=== PATIENT | female | born 1990 | race Hispanic/Latino ===

== ENCOUNTER 2016-10-01 15:04 | Emergency (ER) | payer MEDICAID, OTHER ==
[~2016-10-01] VITALS: Ht 167.6 cm; Wt 91.6 kg
[2016-10-01 15:12] VITALS: BP 110/68; PULSE 120; RESP 16; O2SAT 97
--- NOTE | 2016-10-01 15:23 | ED.REPORT ---
HPI-Rash / Abscess Date of Service Oct 01, 2016 ED Provider: Kevin Galvan MD Pt is as 26 y/o female with a hx of type II diabetes mellitus who reports to the ER complaining of a large abscess on her left buttocks which has been increasing in size for the past 3 days. Pt had a large abscess on her left thigh a month ago, which was treated at Urgent Care where they drained the wound and had strep positive culture. Pt frequently gets smaller sized abscesses in this location. Pt also c/o associated fever, chills, lack of sleep , urinary frequency, increased thirst, and fatigue. Pt reports that it is "uncomfortable to sit down," due to abscess. Pt knows that she is diabetic but has been off of metformin for a year. Pt's brother dropped her off at the ER. Urgent Care sent her to ER for concern with blood sugar (433). Nursing Notes Stated Complaint: ABSCESS Chief Complaint: General Complaint Nursing Notes Reviewed: Yes (Entrenarme, Anago not reconciled) Allergies: Coded Allergies: No Known Allergies (Unverified Allergy, 03/05/10) Scheduled Clindamycin (Clindamycin) 300 Mg Capsule 300 MG PO QID Lactobacillus Combination No.4 (Probiotic) 1 Each Capsule 1 EACH PO DAILY Metformin (Glucophage) 850 Mg Tablet 850 MG PO BID Scheduled PRN Hydrocodone-Acetaminophen 5-325 mg (Hydrocodone-Acetaminophen 5-325 mg) 1 Each Tablet 1-2 TABLET PO Q4H PRN PRN For Pain General Time Seen by MD: 15:21 Chief Complaint Abscess (left buttock) Hx Obtained From: Patient Arrived By: Walk-in Onset Occurred: 3 days ago Symptom Duration: Since onset Severity: Current: Mild Severity: Maximum: Mild Recent Healthcare: Recent doctor visit Similar Sx Previous: Yes Past Medical History Past Medical History Notes: 09/03/16 seen at urgent care for abscess beta hemolytic streptococcus, group B heavy growth penicillin and ampicillin are drugs of choice for treatment Past Medical History Diabetes mellitus type 2 depression Past Surgical History right and left knee surgery for meniscus tear Family History noncontributory Smoking History Never Smoker Social History Other Social History: Good social support, Local resident Ambulatory Status Independent Review of Systems Review of Systems Note: abscess to left buttocks, increased thirst Constitutional: Reports: Chills, Fatigue, Fever, Malaise Complete sys rev & neg: except as marked. Female: Reports: Urinary frequency, Urination increased Physical Exam Initial Vital Signs Vital Signs (First) Date Time Temp Pulse Resp B/P Pulse Ox O2 Delivery O2 Flow Rate FiO2 10/01/16 15:12 37.2 120 16 110/68 97 Room Air Initial VS: Reviewed, Vital signs abnormal Head / Eyes: Atraumatic, Normocephalic, PERRL Extremities: Vascular intact, Neuro intact Neurologic: Alert, Oriented, Nonfocal Psychiatric: Mood/affect normal, Behavior normal, Normal thought content General/Constitutional: Awake, Alert, Not toxic appearing appears dehydrated Skin: Warm, Dry Abscess #1 Location/Condition: Positive: Buttock L... (induration and tenderness on right buttock for current abscess) Abscess #2 Location/Condition: Positive: Location (healed wound to left thigh from recent incision and drainage ) Head / Eyes: Normocephalic, PERRL ENT: Airway patent Mouth: Positive: Mucous membranes dry dry chapped lips Respiratory / Chest: Breath sounds NL, Breath sounds = bilat, No respiratory distress, No rales, No rhonchi, No wheezing Cardiovascular: Regular rhythm, No murmurs Heart Rate / Rhythm: Positive: Tachycardia Abdomen: Atraumatic, Soft, Non-tender Interpretation & Diagnostics Interpretation & Diagnostics: Culture from August from left thigh grew strep Lab Results Interpretation Result Diagram: 10/01/16 1540 10/01/16 1540 Test 10/01/16 15:40 White Blood Count 5.7th/mm3 (3.8-10.1) Red Blood Count 4.89mil/mm3 (3.90-5.20) Hemoglobin 12.7g/dL (12.0-15.6) Hematocrit 39.1% (35.0-46.0) Mean Corpuscular Volume 80.0fL (81-100) Mean Corpuscular Hemoglobin 26.0pg (27.0-35.0) Mean Corpuscular Hemoglobin Concent 32.5% (32.0-37.0) Red Cell Distribution Width 14.3% (12.3-15.4) Platelet Count 86bil/L (150-400) Neutrophils (%) (Auto) 84.7% (40-74) Lymphocytes (%) (Auto) 5.5% (14-46) Monocytes (%) (Auto) 7.4% (4-12) Eosinophils (%) (Auto) 1.1% (0-5) Basophils (%) (Auto) 0.2% (0-3) Sodium Level 130mEq/L (134-144) Potassium Level 4.0mEq/L (3.5-5.2) Chloride Level 94mEq/L (97-108) Carbon Dioxide Level 21mmol/L (18-29) Blood Urea Nitrogen 9mg/dL (6-20) Creatinine 0.51mg/dL (0.57-1.00) Estimat Glomerular Filtration Rate 212mL/min (>59) Glucose Level 437mg/dL (60-99) Lactic Acid Level 2.8mmol/L (0.4-2.0) Calcium Level 8.7mg/dL (8.5-10.1) Total Bilirubin 2.4mg/dL (0.0-1.2) Aspartate Amino Transf (AST/SGOT) 111U/L (0-50) Alanine Aminotransferase (ALT/SGPT) 77U/L (0-32) Alkaline Phosphatase 81U/L (25-150) Total Protein 7.9g/dL (6.4-8.4) Albumin 3.8g/dL (3.4-5.0) Ketones Negative (Negative) Lab Results Interpretation: CBC mild thrombocytopenia CMP significant hyperglycemia-but no findings of DKA Venous blood gas normal Culture from buttock is pending ABG Interpretation ABG Interpretation: pH: 7.430 pCO2: 35 pO2: 36.9 cCHO3-: 22.6 cBase: -0.7 Exam Performed by: Allied health pract Exam Interpreted by: ED physician Procedures Incision & Drainage Abscess Time: 16:07 Procedure Performed by: ED physician Consent / Setup / Site Prep: Consent from patient, Time-out performed, Hand hygiene observed, Stand sterile technique Location of Abscess: left buttocks Skin Preparation Agent: Hibiclens - Chlorhexidine Local Anesthesia: Bupivacaine 0.5% (w/ epi) Incised Abscess with Scalpel: #11 Pus Drained: Purulent discharge, Bloody Irrigation: Copious Post-Procedure / Complications: Culture obtained, Dressing applied, No complications, Condition improved, Tolerated procedure well, Patient stable Re-Eval/Medical Decision Med Decision/Clinical Course This is a 26-year-old female known diabetic and has been noncompliant off all medications in the past year he developed a buttock abscess went to the urgent care and was referred when her glucose was over 300. Fatigue, she does describe some polyuria polydipsia as well, to push units at this abscess in the buttock been developing over the past 3 days was unable to sleep last night. She thinks she may have had fevers or chills but is not certain. Had a recent left thigh abscess, turned up cultures strap. Exam she is mildly tachycardic, but she is not febrile or toxic. She does have a approximately 2-3 cm abscess in the left buttock with surrounding cellulitis. He is no other skin findings or abnormality. An IV was placed. Blood work was obtained and revealed no evidence of DKA, is notable for thrombocytopenia of this mild, as well as significant hyperglycemia. He was hydrated, started back on metformin. She received pain medicine subsequent which local anesthesia was used with lubrication epinephrine , to permit drainage of the buttock abscess. There is a moderate amount of purulent material, culture was sent. She tolerated procedure well. Patient's being discharged in much improved condition. She is a mildly elevated lactic acid, but again is not toxic, is not febrile, she has a cutaneous abscess incised and drained. She is a reasonable candidate for outpatient management. The patient feels much better after fluids, her vitals are normalized, she is being discharged course of clindamycin, she has been given a prescription for probiotic continue for an additional 10 days after finishing the antibiotic, is given a prescription for a few doses of hydrocodone for pain control, and a prescription resume metformin however this am at a dose of 850 mg twice a day- until she will follow up with her PCP next week for recheck. Symptoms reviewed. Patient is discharged in much improved condition Source of Hx: Old records Re-Evaluation/Progress #1: Time of Eval: 16:15 Re-Evaluation/Progress Note: I&D procedure to left buttocks. Awaiting lab results prior to discharge. Re-Evaluation/Progress #2: Time of Eval: 16:48 Re-Evaluation/Progress Note: Pt rechecked. Informed pt of diagnosis and plan for treatment. Pt will need to start metformin. Pt understands and agrees with plan for treatment. Patient understands and agrees with the plan to be discharged home. All questions were addressed. Return to the ED warnings given. Counseled Regarding: Diagnosis, Lab results, Need for follow-up, When/why to return to ED Discharge & Departure Impression: Primary Impression: Cutaneous abscess of buttock Additional Impressions: Hyperglycemia Thrombocytopenia Disposition: Home Discharge Condition All VS Reviewed: Yes Condition: Stable Additional Instructions: 1. The abscess was drained today. 2. Keep a dressing on it for the first 2-4 days as needed for drainage. 3. It is OK to shower. 4. You can get chlorhexadine soap at the drug store and apply (in small amount) to body once daily as soap in shower to try and prevent recurrent abscesses. 4. Take the antibiotic clindamycin 300mg FOUR times a day for 7 days. 5. I recommend taking a PRObiotic that replaces the normal healthy bacteria of the intestine that are also killed by the antibiotic once a day and for an additional 10 days after finishing the antibiotic. 6. Take ibuprofen 400-600mg three times a day for pain 7. IF needed for pain take hydrocodone/APAP 5/325 1-2 tabs up to every 4-6 hours for pain. NOTE: This medication contains narcotic and causes drowsiness. No driving for at least 4 hours after taking. Use sparingly. He should only need this for a couple of days. 8. Return if new or worsening symptoms 9. You DO need to be on medication for your diabetes. Restart metformin at 850mg twice a day. 10. Call Ivone Allen to schedule a follow up appointment. Referrals: Jeniffer Allen (PCP) Philipp Attestation Portion of this note were transcribed by Phuong Giles and Татьяна Manrique. I, Dr. Galvan, personally performed the history, physcial exam, and medical decision- making: I reviewed and confirmed the accuracy for the information in the transcribed note. Signed by: philipp Wolff, 10/01/16 [id number] Signed by: Philipp Warner, 10/01/2016 1743 copies to: Jeniffer Allne Matthew F MD Oct 01, 2016 15:23 ТАТЬЯНА MANRIQUE Oct 01, 2016 15:38 Phuong Giles Oct 01, 2016 16:57
[2016-10-01] MEDS ORDERED: Ondansetron 2 mg/mL 2 mL Inj IVPUSH ONE (15:30)
[2016-10-01] MEDS ORDERED: 0.9% Sodium Chloride 1,000 ML IV ONE ×2 (15:30)
[2016-10-01] MEDS ORDERED: HYDROmorphone 1 mg/mL Inj IVPUSH PRN (15:30)
[2016-10-01 15:57] LABS: BASOPHILS % (AUTO) 0.2 % (0-3); Platelet Count 86 bil/L (150-400)
--- NOTE | 2016-10-01 15:58 | ABG ---
DateTimeAnalyzed 15:51:00 -_ pH ____7.430 - 7.350 7.450 pCO2 ___34.6__ -mmHg 35.0 45.0 pO2 ___36.9__ -mmHg 69.0 116 HCO3- ___22.6__ -mmol/L ABE ___-0.7__ -mmol/L tHb ___12.8__ -g/dL O2Hb ___69.7__ -% COHb ____2.6__ -% MetHb ____0.8__ -% sO2 ___72.2__ -% FIO2 ___21.0__ -% Drawn By MT - Date/Time Notified____ 15:58:00 -_ Notified By MT - Notified Whom DR Cole - B 763 -mmHg tO2 ___12.5__ -Vol% Anival test N/A -
[2016-10-01] MEDS ORDERED: Bupivacaine 0.5%/EPI 50 mL Inj ONE ×2 (16:04→16:11)
[2016-10-01 16:06] LABS: EOSINOPHILS % (AUTO) 1.1 % (0-5); MONOCYTES % (AUTO) 7.4 % (4-12); NEUTROPHILS % (AUTO) 84.7 % (40-74)
[2016-10-01] MEDS ORDERED: HYDROmorphone 0.5 mg/0.5 mL iSecure Syringe ONE (16:10)
[2016-10-01] MEDS ORDERED: Clindamycin Inj 900 MG in IV Premix 1 EACH IV ONE (16:25)
[2016-10-01] MEDS ORDERED: METF850T PO (16:35)
[2016-10-01] MEDS ORDERED: HYDR-4003 PO (16:35)
[2016-10-01] MEDS ORDERED: CLIN-78 PO (16:35)
[2016-10-01] MEDS ORDERED: LACT1CAP67 PO (16:35)
[2016-10-01 16:39] VITALS: BP 112/68; PULSE 103; RESP 16; O2SAT 94
[2016-10-01 17:34] VITALS: BP 96/58; PULSE 67; RESP 14; O2SAT 97
== END 2016-10-01 17:36 | disposition home or self-care (01) ==
LOC: SED 15:04
DX: L02.31 Cutaneous abscess of buttock (principal); E11.65 Type 2 diabetes mellitus with hyperglycemia; D69.6 Thrombocytopenia, unspecified; Z79.84 Long term (current) use of oral hypoglycemic drugs
CPT/HCPCS: 10060; 36415; 80053; 82009; 82375; 82803; 82962; 83605; 85025; 87070; 87147; 87205; 96361; 96365; 96375; 96376; 99285; G0463; J1170; J2405; J7030